=== PATIENT | male | born 1995 | race Caucasian/White ===

== ENCOUNTER 2016-06-08 | Outpatient (CLI) | payer MEDICAID | END 2016-06-08 16:31 | disposition critical access hospital (66) | CPT/HCPCS: A0425; A0429 ==

== ENCOUNTER 2016-06-08 16:47 | Emergency (ER) | payer MEDICAID, OTHER ==
[2016-06-08] MEDS ORDERED: IOPAMIDOL-300 100 ML VIAL IVP ONE (20:43)
== END 2016-06-08 21:09 | disposition home or self-care (01) ==
DX: R00.2 Palpitations (principal); R73.9 Hyperglycemia, unspecified; R03.0 Elevated blood-pressure reading, without diagnosis of hypertension
CPT/HCPCS: 36415; 71020; 71275; 80048; 84443; 85025; 85379; 93005; 93010; 99284; Q9967

== ENCOUNTER 2016-06-25 03:15 | Emergency (ER) | payer MEDICAID ==
[2016-06-25] MEDS ORDERED: LORazepam 0.5 MG TABLET PO STA (04:08)
== END 2016-06-25 05:36 | disposition home or self-care (01) ==
DX: F41.9 Anxiety disorder, unspecified (principal)
CPT/HCPCS: 99284; A9270

== ENCOUNTER 2017-01-10 19:41 | Emergency (ER) | payer MEDICAID ==
[2017-01-10 19:49] VITALS: BP 136/83
[2017-01-10 20:19] LABS: RAPID STREP SCREEN REAGENT QC YELLOW (YELLOW)
--- NOTE | 2017-01-10 20:37 | ED Physician Documentation ---
PD HPI URI - Stated complaint Stated Complaint: SORE THROAT - Chief complaint Chief Complaint: Heent - History obtained from History obtained from: Patient - History of Present Illness Timing - onset: How many days ago (1-2) Timing duration: Days (1-2) Timing details: Gradual onset, Still present Associated symptoms: Fever, Chills, Nasal congestion, Sore throat, Dry cough Contributing factors: Sick contact (his girlfriend has had sore throat/URI for 4 days and he is ill now. She had been exposed to strep and is here getting checked as well.) Similar symptoms before: Has not had sx before Recently seen: Not recently seen Review of Systems Constitutional: reports: Fever, Chills Nose: reports: Congestion Throat: reports: Sore throat Respiratory: reports: Cough GI: denies: Vomiting, Diarrhea Skin: denies: Rash PD PAST MEDICAL HISTORY - Past Medical History Past Medical History: Yes Psych: Panic attacks - Past Surgical History Past Surgical History: Yes - Present Medications Home Medications: Ambulatory Orders Medication Instructions Recorded Confirmed No Known Home Medications [No 01/10/17 01/10/17 Known Home Medications] - Allergies Allergies/Adverse Reactions: Allergies Allergy/AdvReac Type Severity Reaction Status Date / Time Penicillins Allergy Unknown Verified 01/10/17 19:49 - Social History Does the pt smoke?: No Smoking Status: Never smoker Does the pt drink ETOH?: No Does the pt have substance abuse?: No - Immunizations Immunizations are current?: Yes - POLST Patient has POLST: No PD ED PE NORMAL - Vitals Vital signs reviewed: Yes - General General: Alert and oriented X 3, No acute distress, Well developed/nourished - HEENT HEENT: Ears normal, Pharynx benign (with slight tonsillar redness, no exudate. Minimal anterior adenopathy. ) - Neck Neck: Supple, no meningeal sign - Cardiac Cardiac: RRR, No murmur - Respiratory Respiratory: Clear bilaterally - Abdomen Abdomen: Soft, Non tender - Derm Derm: Normal color, Warm and dry, No rash Results - Vitals Vitals: Oxygen O2 Source Room air - Labs Labs: Microbiology 01/10/17 20:00 Group A Strep Throat Culture - Final Throat Strep Agalactiae - (Group B) Laboratory Tests 01/10/17 20:00 Group A Strep Rapid Negative PD MEDICAL DECISION MAKING - ED course Complexity details: reviewed results, considered differential, d/w patient Departure - Departure Disposition: 01 Home, Self Care Clinical Impression: Upper respiratory infection Qualifiers: URI type: unspecified URI Qualified Code(s): J06.9 - Acute upper respiratory infection, unspecified Condition: Stable Record reviewed to determine appropriate education?: Yes Instructions: ED Upper Resp Infec No Abx Tx Comments: Your strep test is negative. Presume this is a viral illness. Drink lots of fluids. Tylenol or ibuprofen if needed for pains or fevers. Presumably will be sick for 5-6 days. Return if worsening symptoms. It is okay to be working. Discharge Date/Time: 01/10/17 21:01
== END 2017-01-10 21:01 | disposition home or self-care (01) ==
LOC: ED 19:41
DX: J06.9 Acute upper respiratory infection, unspecified (principal)
CPT/HCPCS: 87070; 87430; 99282; 99283

== ENCOUNTER 2017-07-09 13:10 | Emergency (ER) | payer MEDICAID ==
--- NOTE | 2017-07-09 15:26 | ED Physician Documentation ---
PD HPI MALE - Stated complaint Stated Complaint: MALE /RASH - Chief complaint Chief Complaint: General - History obtained from History obtained from: Patient - History of Present Illness Timing - onset: How many days ago (5) Timing - duration: Days (5) Timing - details: Gradual onset, Still present Associated symptoms: Genital sore / lesion PD HPI MALE CONTRIB FACTORS: Sexually active Similar symptoms before: Has not had sx before Recently seen: Not recently seen - Additional information Additional information: 21-year-old male is noticed some small flat white red bumps on his genitals and in the skin in the groin. These are nonpainful they do not itch and they are not draining. He has not had these previously. He is not having other symptoms. Review of Systems Constitutional: denies: Fever Cardiac: denies: Chest pain / pressure Respiratory: denies: Dyspnea, Cough GI: denies: Abdominal Pain, Nausea, Vomiting : denies: Dysuria, Frequency, Discharge Skin: reports: Rash Musculoskeletal: denies: Neck pain, Back pain, Extremity pain Neurologic: denies: Generalized weakness, Focal weakness, Numbness PD PAST MEDICAL HISTORY - Past Medical History Past Medical History: Yes Psych: Panic attacks - Past Surgical History Past Surgical History: Yes - Present Medications Home Medications: Ambulatory Orders Medication Instructions Recorded Confirmed Imiquimod [Aldara] 1 each TP DAILY #56 cream.pack 07/09/17 - Allergies Allergies/Adverse Reactions: Allergies Allergy/AdvReac Type Severity Reaction Status Date / Time Penicillins Allergy Unknown Verified 07/09/17 13:51 - Social History Does the pt smoke?: No Smoking Status: Never smoker Does the pt drink ETOH?: No Does the pt have substance abuse?: No - Immunizations Immunizations are current?: Yes - POLST Patient has POLST: No PD ED PE NORMAL - Vitals Vital signs reviewed: Yes (normal ) - General General: Alert and oriented X 3, No acute distress, Well developed/nourished - Respiratory Respiratory: No respiratory distress - Male Male : Other (There are multiple small raised papules over the dorsum of the penis and in the pubic hair region of the groin and these are not associated with the hair follicle. ) - Derm Derm: Normal color, Warm and dry - Extremities Extremities: No deformity, No edema - Neuro Neuro: Alert and oriented X 3, No motor deficit, No sensory deficit, Normal speech Eye Opening: Spontaneous Motor: Obeys Commands Verbal: Oriented GCS Score: 15 - Psych Psych: Normal mood, Normal affect Results - Vitals Vitals: Vital Signs - 24 hr 07/09/17 13:48 Temperature 36.9 C Heart Rate 85 Respiratory 16 Rate Blood Pressure 132/76 H O2 Saturation 100 Oxygen O2 Source Room air PD MEDICAL DECISION MAKING - ED course Complexity details: considered differential, d/w patient ED course: 21-year-old male with what appears to be condyloma acuminata. I discussed with the patient treatment options. Departure - Departure Disposition: 01 Home, Self Care Clinical Impression: Condyloma acuminata Condition: Stable Instructions: ED HPV Infec Genital Warts, HPV Genital Warts Self Care Follow-Up: [facility] [Provider Group] Prescriptions: Imiquimod [Aldara] 1 each TP DAILY #56 cream.pack
[2017-07-09 15:54] VITALS: BP 119/85
== END 2017-07-09 15:50 | disposition home or self-care (01) ==
LOC: ED 13:10
DX: A63.0 Anogenital (venereal) warts (principal)
CPT/HCPCS: 99283